=== PATIENT | male | born 2000 | race Hispanic/Latino ===

== ENCOUNTER → 2022-04-22 | Outpatient (CLI) | payer OTHER, SELFPAY ==
[2022-04-22 12:20] LABS: Absolute Lymphocyte Count 1.14 X10^3/uL (0.83-4.51); Absolute Neutrophil Count 5.3 X10^3/uL (2.0-7.7); Basophil# 0.06 X10^3/uL; Basophil% 0.8 % (0-1); Eosinophil# 0.28 X10^3/uL; Eosinophils% 3.5 % (0-5); Hematocrit 35.4 % (40-54); Hemoglobin 10.2 g/dL (13.0-16.5); Lymphocyte # 1.14 X10^3/ul (0.83-4.51); Lymphocyte % 14.4 % (19-41); Mean Corp Hgb Conc 28.8 g/dL (32-36); Mean Corpuscular Hgb 18.5 pg (27.0-32.0); Mean Corpuscular Volume 64.2 fL (80-94); Mean Platelet Vol. 9.9 fl (6.2-12.0); Monocyte% 13.9 % (0-10); NRBC Flagged by Analyzer 0 % (0-5); Neutrophil # 5.33 X10^3/uL (2.7-7.7); Neutrophil % 67.1 % (47-70); Platelet Count 392 K/mm3 (150-450); RBC Distribution Width CV 18.6 % (11.6-14.6); RBC Distribution Width SD 40.6 fl (35.1-43.9); Red Blood Count 5.51 M/mm3 (4.6-6.2); White Blood Count 7.9 K/mm3 (4.4-11.0)
[2022-04-22 12:43] LABS: ALB/GLOB Ratio 0.9 RATIO (0.9-2.4); AST(SGOT) 19 U/L (15-37); Alanine Aminotransfer ALT/SGPT 40 U/L (16-61); Albumin, Serum 3.4 g/dL (3.2-5.0); Alkaline Phosphatase 60 U/L (45-117); Anion Gap 5 (5-15); BUN 11 mg/dL (7-18); BUN/Creat Ratio 16.3 RATIO (10-20); Calcium,Total 8.9 mg/dL (8.5-10.1); Chloride 105 mmol/L (98-107); Creatinine, Serum 0.68 mg/dL (0.70-1.30); EST Glomerular Filtration Rate 154 mL/min (>60); Est Glom Filt Rate - Afr Amer 186 mL/min (>60); Ferritin 5 ng/mL (26-388); Globulin 3.8 g/dL (2.2-4.2); Glucose 84 mg/dL (74-106); Iron 12 ug/dL (65-175); Iron Binding Capacity,Total 409 ug/dL (250-450); Potassium 4.6 mmol/L (3.5-5.1); Protein, Total 7.2 g/dL (6.4-8.2); Sodium Level 139 mmol/L (136-145)
[2022-04-23 16:34] LABS: Transferrin 311 mg/dL (177-329)
== END | disposition home or self-care (01) ==
LOC: BIMLAB 09:45
PROVIDERS: PCP Internal Medicine; Referring Provider Physician Assistant; Visit Provider Physician Assistant
DX: D64.9 Anemia, unspecified (principal); K92.1 Melena; R19.7 Diarrhea, unspecified; R11.10 Vomiting, unspecified
CPT/HCPCS: 36415; 80053; 82728; 83540; 83550; 84466; 85025; 87635; U0003; U0005

== ENCOUNTER → 2022-04-24 | Outpatient (CLI) | payer OTHER, SELFPAY | END | disposition home or self-care (01) | LOC: LABSPEC 07:40 | PROVIDERS: PCP Internal Medicine; Referring Provider Physician Assistant; Visit Provider Physician Assistant | DX: D64.9 Anemia, unspecified (principal); R19.7 Diarrhea, unspecified; R11.10 Vomiting, unspecified; K92.1 Melena | CPT/HCPCS: 82274 ==

== ENCOUNTER → 2022-07-16 | Outpatient (CLI) | payer OTHER, SELFPAY ==
[2022-07-16 15:16] LABS: Erythrocyte Sedimentation Rate 46 mm/hr (0-20)
[2022-07-16 15:18] LABS: Absolute Lymphocyte Count 1.25 X10^3/uL (0.83-4.51); Absolute Neutrophil Count 5.3 X10^3/uL (2.0-7.7); Basophil# 0.05 X10^3/uL; Basophil% 0.6 % (0-1); Eosinophil# 0.42 X10^3/uL; Eosinophils% 5.3 % (0-5); Hematocrit 36.9 % (40-54); Hemoglobin 10.6 g/dL (13.0-16.5); Lymphocyte # 1.25 X10^3/ul (0.83-4.51); Lymphocyte % 15.8 % (19-41); Mean Corp Hgb Conc 28.7 g/dL (32-36); Mean Corpuscular Hgb 18.6 pg (27.0-32.0); Mean Corpuscular Volume 64.9 fL (80-94); Mean Platelet Vol. 10.3 fl (6.2-12.0); Monocyte# 0.93 X10^3/uL; Monocyte% 11.7 % (0-10); NRBC Flagged by Analyzer 0 % (0-5); Neutrophil # 5.25 X10^3/uL (2.7-7.7); Neutrophil % 66.3 % (47-70); Platelet Count 451 K/mm3 (150-450); RBC Distribution Width CV 19.2 % (11.6-14.6); Red Blood Count 5.69 M/mm3 (4.6-6.2); White Blood Count 7.9 K/mm3 (4.4-11.0)
[2022-07-16 15:36] LABS: LDH 234 U/L (87-241)
[2022-07-19 13:07] LABS: Anti-Centromere B Ab <0.2 AI (0.0-0.9); Anti-Chromatin <0.2 AI (0.0-0.9); Anti-Jo <0.2 AI (0.0-0.9); Anti-Scleroderma-70 AB <0.2 AI (0.0-0.9); RNP Ab <0.2 AI (0.0-0.9); SJOGREN'S Anti-SS-A test < 0.2 AI (0.0-0.9); SJOGREN'S Anti-SS-B test < 0.2 AI (0.0-0.9); Smith Ab <0.2 AI (0.0-0.9)
[2022-07-19 15:07] LABS: Endomysial Antibody IgA Negative (Negative); Immunoglobulin A 80 mg/dL (90-386)
[2022-07-20 14:04] LABS: t-Transglutaminase IgA <2 U/mL (0-3)
[2022-07-20 15:22] LABS: Anti-dsDNA Ab 1 IU/mL (0-9)
[2022-07-23 18:07] LABS: Albumin 3.3 g/dL (2.9-4.4); Alpha-1-Globulins 0.3 g/dL (0.0-0.4); Alpha-2-Globulins 0.8 g/dL (0.4-1.0); Cytoplasmic Ab (C-ANCA) <1:20 titer (Neg:<1:20); Gamma Globulin 1.1 g/dL (0.4-1.8); Immunoglobulin A 76 mg/dL (90-386); Immunoglobulin E 124 IU/mL (6-495); Immunoglobulin G 1150 mg/dL (603-1613); Immunoglobulin M 104 mg/dL (20-172); PROEL- TOTAL PROTEIN 6.4 g/dL (6.0-8.5)
[2022-07-24 07:15] LABS: IMMUNOFIXATION RESULT,S Comment: (.); Perinuclear Ab (P-ANCA) <1:20 titer (Neg:<1:20)
== END | disposition home or self-care (01) ==
LOC: LAB 14:33
PROVIDERS: PCP Internal Medicine; Referring Provider Internal Medicine Gastroenterology; Visit Provider Internal Medicine Gastroenterology
DX: K92.2 Gastrointestinal hemorrhage, unspecified (principal)
CPT/HCPCS: 36415; 82784; 82785; 83516; 83615; 84165; 85025; 85652; 86140; 86225; 86235; 86255; 86256; 86334

== ENCOUNTER → 2022-07-19 | Outpatient (CLI) | payer OTHER, SELFPAY ==
[2022-07-23 11:07] LABS: Calprotectin, Stool 532 ug/g (0-120)
== END | disposition home or self-care (01) ==
LOC: LABSPEC 19:43
PROVIDERS: PCP Internal Medicine; Visit Provider Internal Medicine Gastroenterology
DX: K92.2 Gastrointestinal hemorrhage, unspecified (principal)
CPT/HCPCS: 83630; 83993

== ENCOUNTER 2022-10-05 14:11 | Day surgery (SDC) | payer OTHER, SELFPAY ==
[2022-10-05] VITALS (7 sets, daily range): BP systolic 103–124; BP diastolic 44–65; PULSE 42–65; RESP 18; TEMP 36.4–36.8; O2SAT 99–100; BMI 40.6
[2022-10-05] MEDS: Lactated Ringers 1,000 ML 15 ML IV (14:57)
--- NOTE | 2022-10-05 14:59 | HP.PCM_ITS ---
History and Physical Date of Admission: 10/05/22 BENITO NICOLE, is a 22 M who presents to the office today for Initial consult. Benito established with this clinic 07.16.22 with referral from PCP for diarrhea with some blood and some fatigue. These symptoms have been for the last four years and occur several times in a week and then dissipate for several months. Denies abdominal pain, nausea and emesis. Stool testing performed with positive fecal occult. PCP recommended iron and he feels about the same as previously. Presented to [facility] ED 04.21.22 with noted microcytic anemia and discharged with Zofran and dicyclomine which were helpful. ROS Const Constitutional: No anorexia, body ache, chills, excessive sweating, fatigue, fever(s), frequent falls, headache(s), decreased energy, malaise, night sweats, snoring, weakness, weight change, sleep problems, abnormal sleep pattern, change in appetite or other Eyes Eyes: No blurry vision, change in vision, double vision, irritation, discharge, vision loss, dry eyes, bulging eyes, floaters, visual disturbances, eye pain, Light sensitivity, spots in vision, tunnel vision or other ENT ENT: No abnormal hearing, dizziness/vertigo, headache(s) or neck pain Resp Respiratory: No cough, change in phlegm color, chest congestion, excessive phlegm production, hemoptysis, pain on inspiration, shortness of breath, pain with cough, snoring, stridor, wheezing or other Cardio Cardiology: Positive for shortness of breath (diff with deep breaths); No chest pain at rest, chest pain with exertion, leg pain with exertion, excessive sweating, dyspnea on exertion, generalized swelling, irregular heart rhythm, lightheadedness, orthopnea, radiating jaw, neck or arm pain, fast heart rate, slow heart rate, palpitations, difficulty breathing or other Gastro GI: Positive for abdominal pain, Blood in stool, loose stools and vomiting Genitourinary Male: No difficulty urinating, burning urination, painful urination, urinary incontinence, urinary frequency, urinary urgency, urinary hesitancy, urinary retention, blood in urine, Frequent nighttime urination/ nocturia, post void dribbling, suprapubic fullness, side pain, sexual problems, genital lesions, genital itching, erectile dysfunction, penile discharge, difficulty with ejaculations, blood in semen, scrotal swelling, testicle lump, testicle pain or other Musc Musculoskeletal: No abnormal gait, joint pain, back pain, deformity, joint swelling, limited range of motion, loss of height, muscle cramps, muscle weakness, decreased muscle mass, myalgias, neck pain, numbness, radiating pain into limb, stiffness, tingling, Arthritis, sciatica, restless legs, leg pain at night, leg pain with exertion or other Skin Skin: No acne, hair loss in leg, change in hair, nail changes, boil, change in skin color, dry skin, redness, excessive hair growth, yellowing of the eye, lesions, itchy eyes, rash, skin pain, skin ulcer, sores, skin swelling, wounds or other Breast Breast: No change in breast shape, breast lump, breast pain, breast skin changes, breast swelling, nipple discharge or other Neuro Neurology: No abnormal gait, abnormal hearing, abnormal movements, abnormal speech, behavioral changes, confusion, unsteady gait/balance, dizziness, weakness, frequent falls, headache(s), lack of coordination, loss of vision, memory loss, numbness, tingling, visual disturbances, restless legs, fainting, tremor(s), Increased tone in limbs, paralysis, seizures or other Psych Psychiatric: No abnormal sleep pattern, No behavioral changes, No change in appetite, No confusion and No memory loss Endo Endocrine: No excessive sweating, fatigue or weight change Aller/Imm Allergy/Immunologic: No itchy eyes or wheezing Exam Const General: cooperative, comfortable and no acute distress Nutritional Appearance: overweight Orientation: alert and oriented x3 Limitations: mental status not altered [facility] Head: normal to inspection, normocephalic and atraumatic Ears: hearing grossly normal bilaterally, external ears normal, TM's normal bilaterally and EAC's normal Nose: external nose normal and nares normal Face and sinus: normal facial exam Mouth: oral mucosae normal, lip normal and moist mucous membranes Teeth and gingiva: dentition normal Throat: posterior oropharynx normal Eyes General: appearance normal, both eyes and all related structures Alignment and Position: alignment normal Periorbital: periorbital findings normal Eyelids: eyelids normal Conjunctivae: conjunctivae normal Pupils: PERRL Neck Neck: normal visual inspection, no lymphadenopathy, trachea midline and supple Neck mass: No Thyroid: thyroid normal Chest Chest palpation & inspection: normal palpation of entire chest wall Resp Effort & Inspection: normal respiratory effort, able to speak in complete sentences, normal respiratory pattern, no audible wheezes and no cough Auscultation: Bilateral: Clear to Auscultation Cardio Rate: regular rate Rhythm: regular rhythm Heart Sounds: S1 normal, S2 normal, no gallops, no murmurs and no rubs GI Auscultation: normal bowel sounds Palpation: soft, no hepatosplenomegaly and tender in the RLQ and periumbilically; not at McBurney's point, Fairchild's sign negative, obturator sign negative, psoas sign negative, with no rebound tenderness and Rovsing's sign negative General: No CVA tenderness Skin General: no rashes or lesions noted Trauma: no lacerations or abrasions Wounds: no wounds Neuro General: patient alert, patient oriented x3 and moves all extremities Cognition: normal cognition Speech: speech normal Gait: normal gait Motor: muscle tone normal throughout Extrem General: normal to inspection, full ROM, no clubbing, cyanosis or edema and no pedal edema Psych Appearance: grossly normal Mental Status: mental status grossly normal Mood: congruent mood Affect: normal affect Speech and Movement: speech and movement normal Attitude: cooperative Thought Process: normal Thought Content: normal Judgment: judgment good Quality Reporting Tobacco Screening ([facility] 138) Smoking Status: Never smoker Assessment and Plan Assessment and Plan (1) GIB (gastrointestinal bleeding): ?Status:?Acute ?Plan: Intermittent lower GI bleeding in a young male with diarrhea and iron deficient.? The differential diagnosis Crohn's disease, ulcerative colitis, telangiectasias, celiac disease with lymphocytic colitis.? We will do biochemical profile and check stool studies.? He will also endoscopy to evaluate his lower GI tract.? Today CBC as his ferritin is only 5, MCV 64 and iron level of 12.? He is on iron for now. ? ? ? Orders: Orders CRP Today K92.2 - Gastrointestinal hemorrhage, unspecified ? LDH Today K92.2 - Gastrointestinal hemorrhage, unspecified ? CBC W/Diff, Automated Today K92.2 - Gastrointestinal hemorrhage, unspecified ? Erythrocyte Sed Rate Today K92.2 - Gastrointestinal hemorrhage, unspecified ? ROSALIND Comprehensive Panel Today K92.2 - Gastrointestinal hemorrhage, unspecified ? Calprotectin, Stool Today K92.2 - Gastrointestinal hemorrhage, unspecified ? Stool Lactoferrin/WBC Today K92.2 - Gastrointestinal hemorrhage, unspecified ? ANCA Today K92.2 - Gastrointestinal hemorrhage, unspecified ? Celiac Disease Profile Today K92.2 - Gastrointestinal hemorrhage, unspecified ? Immunoglobulins G/A/M/E Today K92.2 - Gastrointestinal hemorrhage, unspecified ? ANGELINA + Protein Elect, SerumA Today K92.2 - Gastrointestinal hemorrhage, unspecified ? I have examined the patient and the H&P has been reviewed. There are no clinical changes since date of exam.
--- NOTE | 2022-10-05 15:15 | EGD_PTH ---
PATIENT: BENITO NICOLE LOC: [facility] U#:[id number] AGE/SX: 22/M ROOM: RE10/05/[address]: Dr. Porter Davis DO : 2000 BED: DIS: 10/05/2022 SPEC #: [id number] RECD: 10/05/22 17:02 STATUS: RODNEY SONIYA #: [id number] JAH: 10/05/22 15:[address]: Porter Davis DEPT: SURGICAL PATHOLOGY RECD BY: Keisha Cabezas ENTERED: 10/06/22 08:57 SP TYPE: EGD BIOPSY DEDRA DR: Dr. Juanita Messer MD Tissues: A - Esophagus, NOS B - Ileum, NOS Procedures: Special Stain Group II Surgery Specimen Level IV Alcian Blue/PAS (control) HEADER OPERATION: Colonoscopy, EGD ([facility] [place]) PRE-OP DIAGNOSIS: GI bleeding TISSUE SUBMITTED: A ? Distal esophagus biopsy, B ? Terminal ileum biopsy MICROSCOPIC DIAGNOSIS A. Distal esophagus, biopsy: Gastroesophageal junctional mucosa with chronic inflammation. No evidence of goblet cell metaplasia. See comment. B. Terminal ileum, biopsy: No pathologic change. AM:nidhi 10/07/2022 COMMENT A. Alcian blue/PAS stain with matched control supports the above diagnosis. MICROSCOPIC DESCRIPTION Slides are reviewed. GROSS DESCRIPTION A - Received in fixative is one container labeled with the patient's name and designated distal esophagus. The specimen consists of two irregular fragments of light wesley soft tissue that in aggregate measure 0.7 x 0.3 x 0.1 cm. The specimen is totally submitted in one cassette. B - Received in fixative is one container labeled with the patient's name and designated terminal ileum biopsy. The specimen consists of multiple irregular fragments of light wesley soft tissue that in aggregate measure 1 x 0.6 x 0.1 cm. The specimen is totally submitted in one cassette. / AM:nidhi 10/06/2022 TC:3 CPT: 76118 x2, 14357
--- NOTE | 2022-10-05 16:01 | OP.EGD_ITS ---
Patient Name: Jaguar Venecs Procedure Date: 10/05/2022 3:32 PM Date of : 2000 Age: 22 Procedure: Upper GI endoscopy Indications: Epigastric abdominal pain, Dyspepsia, Heartburn Providers: Porter Davis DO Referring MD: Juanita Messer Medicines: Monitored Anesthesia Care Patient Profile: This is a 22 year old male. Refer to note in patient chart for documentation of history and physical. Patient has symptoms of chronic abdominal cramping, acute epigastric abdominal pain and chronic heartburn. Complications: No immediate complications. Procedure: Pre-Anesthesia Assessment: - Prior to the procedure, a History and Physical was performed, and patient medications and allergies were reviewed. The patient is competent. The risks and benefits of the procedure and the sedation options and risks were discussed with the patient. All questions were answered and informed consent was obtained. Patient identification and proposed procedure were verified by the physician in the pre-procedure area. Mental Status Examination: alert and oriented. Airway Examination: normal oropharyngeal airway and neck mobility. Respiratory Examination: clear to auscultation. CV Examination: normal. Prophylactic Antibiotics: The patient does not require prophylactic antibiotics. Prior Anticoagulants: The patient has taken no previous anticoagulant or antiplatelet agents. ASA Grade Assessment: II - A patient with mild systemic disease. After reviewing the risks and benefits, the patient was deemed in satisfactory condition to undergo the procedure. The anesthesia plan was to use monitored anesthesia care (MAC). Immediately prior to administration of medications, the patient was re-assessed for adequacy to receive sedatives. The heart rate, respiratory rate, oxygen saturations, blood pressure, adequacy of pulmonary ventilation, and response to care were monitored throughout the procedure. The physical status of the patient was re-assessed after the procedure. After obtaining informed consent, the endoscope was passed under direct vision. Throughout the procedure, the patient's blood pressure, pulse, and oxygen saturations were monitored continuously. The Colonoscope was introduced through the mouth, and advanced to the second part of duodenum. The upper GI endoscopy was accomplished without difficulty. The patient tolerated the procedure well. Scope In: 3:39:21 PM Scope Out: 3:43:11 PM Total Procedure Duration Time 0 hours 3 minutes 50 seconds Findings: LA Grade B (one or more mucosal breaks greater than 5 mm, not extending between the tops of two mucosal folds) esophagitis with no bleeding was found 36 to 38 cm from the incisors. Biopsies were taken with a cold forceps for histology. Verification of patient identification for the specimen was done. Estimated blood loss was minimal. The entire examined stomach was normal. The first portion of the duodenum was normal. Impression: - LA Grade B reflux esophagitis. Biopsied. - Normal stomach. - Normal first portion of the duodenum. Recommendation: - Discharge patient to home. - Resume previous diet. - Continue present medications. - Await pathology results. Procedure Code(s): --- Professional --- 69161, Esophagogastroduodenoscopy, flexible, transoral; with biopsy, single or multiple CPT copyright 2017 [employer]. All rights reserved. The codes documented in this report are preliminary and upon nailer operator review may be revised to meet current compliance requirements. Porter Davis DO 10/05/2022 4:01:15 PM This report has been signed electronically. Number of Addenda: 0 Note Initiated On: 10/05/2022 3:32 PM
--- NOTE | 2022-10-05 16:01 | OP.CCLET_ITS ---
10/05/2022 Juanita Messer [facility] [address] [place] [address] Re : Upper GI endoscopy procedure for [facility] Dear Dr. Messer This procedure was performed on Wednesday, October 05, 2022. My impressions and recommendations are as follows: Impressions : - LA Grade B reflux esophagitis. Biopsied. - Normal stomach. - Normal first portion of the duodenum. Recommendations : - Discharge patient to home. - Resume previous diet. - Continue present medications. - Await pathology results. My findings are described in the full procedure note, which is enclosed. If I can be of further assistance, please feel free to contact me at . Sincerely, Porter Davis, 10/05/2022 4:01:15 PM This report has been signed electronically.
--- NOTE | 2022-10-05 16:07 | OP.COLON_ITS ---
Patient Name: Jaguar Vences Procedure Date: 10/05/2022 3:43 PM Date of : 2000 Age: 22 Procedure: Colonoscopy Indications: This is the patient's first colonoscopy, Hematochezia Providers: Porter Davis DO Referring MD: Juanita Messer Medicines: Monitored Anesthesia Care Patient Profile: This is a 22 year old male. Refer to note in patient chart for documentation of history and physical. Patient has symptoms of chronic abdominal cramping, acute epigastric abdominal pain and chronic heartburn. Last Colonoscopy: none. The patient's first colonoscopy is today. Complications: No immediate complications. Procedure: Pre-Anesthesia Assessment: - Prior to the procedure, a History and Physical was performed, and patient medications and allergies were reviewed. The patient is competent. The risks and benefits of the procedure and the sedation options and risks were discussed with the patient. All questions were answered and informed consent was obtained. Patient identification and proposed procedure were verified by the physician in the pre-procedure area. Mental Status Examination: alert and oriented. Airway Examination: normal oropharyngeal airway and neck mobility. Respiratory Examination: clear to auscultation. CV Examination: normal. Prophylactic Antibiotics: The patient does not require prophylactic antibiotics. Prior Anticoagulants: The patient has taken no previous anticoagulant or antiplatelet agents. ASA Grade Assessment: II - A patient with mild systemic disease. After reviewing the risks and benefits, the patient was deemed in satisfactory condition to undergo the procedure. The anesthesia plan was to use monitored anesthesia care (MAC). Immediately prior to administration of medications, the patient was re-assessed for adequacy to receive sedatives. The heart rate, respiratory rate, oxygen saturations, blood pressure, adequacy of pulmonary ventilation, and response to care were monitored throughout the procedure. The physical status of the patient was re-assessed after the procedure. After I obtained informed consent, the scope was passed under direct vision. Throughout the procedure, the patient's blood pressure, pulse, and oxygen saturations were monitored continuously. The Colonoscope was introduced through the anus and advanced to the terminal ileum. The colonoscopy was performed without difficulty. The patient tolerated the procedure well. The quality of the bowel preparation was good. Scope In: 3:46:45 PM Scope Withdrawal Time 0 hours 5 minutes 25 seconds Scope Out: 3:55:19 PM Total Procedure Duration Time 0 hours 8 minutes 34 seconds Findings: The perianal and digital rectal examinations were normal. The Simple Endoscopic Score for Crohn's Disease was determined based on the endoscopic appearance of the mucosa in the following segments: - Ileum: Findings include ulcers greater than 2 cm in size, 10-30% ulcerated surfaces, less than 50% of surfaces affected and a single narrowing that can be passed. Segment score: 7. - Right Colon: Findings include no ulcers present, no ulcerated surfaces, no affected surfaces and no narrowings. Segment score: 0. - Transverse Colon: Findings include no ulcers present, no ulcerated surfaces, no affected surfaces and no narrowings. Segment score: 0. - Left Colon: Findings include no ulcers present, no ulcerated surfaces, no affected surfaces and no narrowings. Segment score: 0. - Rectum: Findings include no ulcers present, no ulcerated surfaces, no affected surfaces and no narrowings. Segment score: 0. - Total SES-CD aggregate score: 7. Biopsies were taken with a cold forceps for histology. Verification of patient identification for the specimen was done. Estimated blood loss was minimal. The entire examined colon appeared normal on direct and retroflexion views. The terminal ileum contained a benign-appearing, intrinsic moderate stenosis measuring 5 cm (in length) x 2 mm (inner diameter) that was traversed after dilation. A TTS dilator was passed through the scope. Dilation with a 15 mm colonic balloon dilator was performed. The dilation site was examined and showed moderate improvement in luminal narrowing. Impression: - Simple Endoscopic Score for Crohn's Disease: 7, mucosal inflammatory changes secondary to Crohn's disease. Biopsied. - The entire examined colon is normal on direct and retroflexion views. Recommendation: - Discharge patient to home. - Resume previous diet. - Continue present medications. - Await pathology results. - Repeat colonoscopy in 1 year for surveillance. Procedure Code(s): --- Professional --- 20824, Colonoscopy, flexible; with transendoscopic balloon dilation 37994, Colonoscopy, flexible; with biopsy, single or multiple CPT copyright 2017 [employer]. All rights reserved. The codes documented in this report are preliminary and upon sintering press operator review may be revised to meet current compliance requirements. Porter Davis DO 10/05/2022 4:07:19 PM This report has been signed electronically. Number of Addenda: 0 Note Initiated On: 10/05/2022 3:43 PM
--- NOTE | 2022-10-05 16:08 | OP.CCLET_ITS ---
10/05/2022 Juanita Messer [facility] [address] [place] [address] Re : Colonoscopy procedure for Jaguar Ru Dear Dr. Messer This procedure was performed on Wednesday, October 05, 2022. My impressions and recommendations are as follows: Impressions : - Simple Endoscopic Score for Crohn's Disease: 7, mucosal inflammatory changes secondary to Crohn's disease. Biopsied. - The entire examined colon is normal on direct and retroflexion views. Recommendations : - Discharge patient to home. - Resume previous diet. - Continue present medications. - Await pathology results. - Repeat colonoscopy in 1 year for surveillance. My findings are described in the full procedure note, which is enclosed. If I can be of further assistance, please feel free to contact me at . Sincerely, Porter Davis, 10/05/2022 4:07:19 PM This report has been signed electronically.
== END 2022-10-05 16:51 | disposition home or self-care (01) ==
LOC: EN 14:15 → AC 14:15
PROVIDERS: PCP Internal Medicine; Referring Provider Internal Medicine; Visit Provider Internal Medicine Gastroenterology
PROC: 0DJD8ZZ Inspection of Lower Intestinal Tract, Via Natural or Artificial Opening Endoscopic (ICD-10-PCS; CPT 45378; principal; 2022-10-05 15:10)
DX: K21.00 Gastro-esophageal reflux disease with esophagitis, without bleeding (principal); K56.609 Unspecified intestinal obstruction, unspecified as to partial versus complete obstruction
CPT/HCPCS: 45380; 45386; 43239; 88305; 88313; J7120; J2405

== ENCOUNTER → 2022-10-20 | Outpatient (CLI) | payer OTHER, SELFPAY ==
[2022-10-20 14:40] LABS: Absolute Lymphocyte Count 1.35 X10^3/uL (0.83-4.51); Absolute Neutrophil Count 6.3 X10^3/uL (2.0-7.7); Basophil# 0.03 X10^3/uL; Basophil% 0.3 % (0-1); Eosinophil# 0.31 X10^3/uL; Eosinophils% 3.5 % (0-5); Hematocrit 41.7 % (40-54); Hemoglobin 12.3 g/dL (13.0-16.5); Lymphocyte # 1.35 X10^3/ul (0.83-4.51); Lymphocyte % 15.2 % (19-41); Mean Corp Hgb Conc 29.5 g/dL (32-36); Mean Corpuscular Volume 67.9 fL (80-94); Mean Platelet Vol. 9.6 fl (6.2-12.0); Monocyte# 0.82 X10^3/uL; Monocyte% 9.2 % (0-10); NRBC Flagged by Analyzer 0 % (0-5); Neutrophil # 6.34 X10^3/uL (2.7-7.7); Neutrophil % 71.6 % (47-70); Platelet Count 417 K/mm3 (150-450); RBC Distribution Width CV 19.8 % (11.6-14.6); RBC Distribution Width SD 45.9 fl (35.1-43.9); Red Blood Count 6.14 M/mm3 (4.6-6.2); White Blood Count 8.9 K/mm3 (4.4-11.0)
[2022-10-20 16:22] LABS: Vitamin B12 301 pg/mL (211-911); Vitamin D,25 Hydroxy 11.9 ng/mL
[2022-10-20 16:27] LABS: ALB/GLOB Ratio 0.8 RATIO (0.9-2.4); AST(SGOT) 19 U/L (15-37); Alanine Aminotransfer ALT/SGPT 38 U/L (16-61); Albumin, Serum 3.3 g/dL (3.2-5.0); Alkaline Phosphatase 66 U/L (45-117); Anion Gap 8 (5-15); BUN 11 mg/dL (7-18); BUN/Creat Ratio 17.6 RATIO (10-20); Calcium,Total 8.4 mg/dL (8.5-10.1); Chloride 109 mmol/L (98-107); Creatinine, Serum 0.63 mg/dL (0.70-1.30); EST Glomerular Filtration Rate 167 mL/min (>60); Est Glom Filt Rate - Afr Amer 202 mL/min (>60); Ferritin 4 ng/mL (26-388); Globulin 3.9 g/dL (2.2-4.2); Glucose 97 mg/dL (74-106); Iron 15 ug/dL (65-175); Iron Binding Capacity,Total 394 ug/dL (250-450); PERCENT IRON SATURATION 3.8 % (15.0-55.0); Potassium 3.7 mmol/L (3.5-5.1); Protein, Total 7.2 g/dL (6.4-8.2); Sodium Level 142 mmol/L (136-145); T4 Free Direct 1.08 ng/dL (0.76-1.46); Thyroid Stim Hormone (TSH) 0.63 uIU/mL (0.358-3.74)
[2022-10-22 21:07] LABS: HEPATITIS B SURFACE AG Negative (Negative); Hep C Antibodies 0.2 s/co ratio (0.0-0.9); Hepatitis A IgM Antibody Negative (Negative); Hepatitis B Core AB IgM Negative (Negative); QNTFERON TB Mitogen Value > 10.00 IU/mL (.); QNTFERON TB Nil Value 0.04 IU/mL (.); QNTFERON TB1+ Ag Value 0.03 IU/mL (.); QNTFERON TB2+ Ag Value 0.03 IU/mL (.)
[2022-10-23 15:03] LABS: QNTIFERON TB Positive Criteria Negative (Negative)
[2022-10-23 21:01] LABS: Vitamin D 1,25-Dihydroxy 48.5 pg/mL (24.8-81.5)
== END | disposition home or self-care (01) ==
LOC: LAB 13:29
PROVIDERS: PCP Internal Medicine; Referring Provider Internal Medicine Gastroenterology; Visit Provider Internal Medicine Gastroenterology
DX: K50.90 Crohn's disease, unspecified, without complications (principal)
CPT/HCPCS: 36415; 80053; 80074; 82306; 82607; 82652; 82728; 82746; 83540; 83550; 84439; 84443; 84481; 85025; 86480

== ENCOUNTER → 2023-01-04 | Outpatient (CLI) | payer OTHER, SELFPAY ==
[2023-01-04 13:29] VITALS: BP 134/59; PULSE 94; RESP 16; TEMP 36.7; O2SAT 99; BMI 41.5
[2023-01-04] MEDS: 0.9% NaCl Peripheral Flush Adult/Peds IV (13:33)
[2023-01-04] MEDS: 0.9% NaCl IVPB Med Flush (250 mL) 15 ML IV (13:35)
[2023-01-04 15:14] VITALS: BP 128/86; PULSE 77; RESP 16; TEMP 36.3; O2SAT 100
== END | disposition home or self-care (01) ==
LOC: MEDOUTP 13:24
PROVIDERS: PCP Internal Medicine; Referring Provider Internal Medicine Gastroenterology; Visit Provider Internal Medicine Gastroenterology
DX: K50.90 Crohn's disease, unspecified, without complications (principal)
CPT/HCPCS: 96365; 96361; J7050; A4216; J3358

== ENCOUNTER → 2023-04-22 | Outpatient (CLI) | payer OTHER, SELFPAY ==
[2023-04-22 10:41] LABS: Absolute Lymphocyte Count 1.11 X10^3/uL (0.83-4.51); Absolute Neutrophil Count 3.6 X10^3/uL (2.0-7.7); Basophil# 0.05 X10^3/uL; Basophil% 0.9 % (0-1); Eosinophil# 0.26 X10^3/uL; Eosinophils% 4.6 % (0-5); Hematocrit 25.8 % (40-54); Hemoglobin 6.6 g/dL (13.0-16.5); Lymphocyte # 1.11 X10^3/ul (0.83-4.51); Lymphocyte % 19.6 % (19-41); Mean Corp Hgb Conc 25.6 g/dL (32-36); Mean Corpuscular Hgb 15.5 pg (27.0-32.0); Mean Corpuscular Volume 60.7 fL (80-94); Mean Platelet Vol. 9.8 fl (6.2-12.0); Monocyte# 0.68 X10^3/uL; NRBC Flagged by Analyzer 0 % (0-5); Neutrophil # 3.55 X10^3/uL (2.7-7.7); Neutrophil % 62.7 % (47-70); Platelet Count 447 K/mm3 (150-450); RBC Distribution Width CV 18.6 % (11.6-14.6); RBC Distribution Width SD 39.4 fl (35.1-43.9); Red Blood Count 4.25 M/mm3 (4.6-6.2); White Blood Count 5.7 K/mm3 (4.4-11.0)
[2023-04-22 11:16] LABS: ALB/GLOB Ratio 1.1 RATIO (0.9-2.4); AST(SGOT) 13 U/L (15-37); Alanine Aminotransfer ALT/SGPT 33 U/L (16-61); Albumin, Serum 3.6 g/dL (3.2-5.0); Alkaline Phosphatase 46 U/L (45-117); Anion Gap 7 (5-15); BUN 9 mg/dL (7-18); BUN/Creat Ratio 13.5 RATIO (10-20); Calcium,Total 8.6 mg/dL (8.5-10.1); Chloride 107 mmol/L (98-107); Creatinine, Serum 0.67 mg/dL (0.70-1.30); EST Glomerular Filtration Rate 154 mL/min (>60); Est Glom Filt Rate - Afr Amer 186 mL/min (>60); Globulin 3.3 g/dL (2.2-4.2); Glucose 100 mg/dL (74-106); Iron 8 ug/dL (65-175); Iron Binding Capacity,Total 458 ug/dL (250-450); PERCENT IRON SATURATION 1.7 % (15.0-55.0); Potassium 4.1 mmol/L (3.5-5.1); Protein, Total 6.9 g/dL (6.4-8.2); Sodium Level 139 mmol/L (136-145)
[2023-04-22 11:47] LABS: Vitamin D,25 Hydroxy 21.4 ng/mL
== END | disposition home or self-care (01) ==
LOC: LAB 10:00
PROVIDERS: PCP Internal Medicine; Referring Provider Internal Medicine; Visit Provider Internal Medicine
DX: E55.9 Vitamin D deficiency, unspecified (principal); K50.90 Crohn's disease, unspecified, without complications; D64.9 Anemia, unspecified; K92.2 Gastrointestinal hemorrhage, unspecified
CPT/HCPCS: 36415; 80053; 82306; 83540; 83550; 85025

== ENCOUNTER 2023-05-06 08:36 | Outpatient (CLI) | payer OTHER, SELFPAY ==
[2023-05-06 09:21] VITALS: BP 132/35; PULSE 72; RESP 16; TEMP 36.2; O2SAT 100; BMI 44.1
[2023-05-06] MEDS: 0.9% NaCl Peripheral Flush Adult/Peds IV (09:25)
[2023-05-06] MEDS: 0.9% NaCl IVPB Med Flush (250 mL) 15 ML IV (09:35)
[2023-05-06 14:37] VITALS: BP 118/56; PULSE 76; RESP 16; TEMP 36.5; O2SAT 100
== END 2023-05-06 08:37 | disposition home or self-care (01) ==
LOC: MEDOUTP 08:37
PROVIDERS: PCP Internal Medicine; Referring Provider Internal Medicine; Visit Provider Internal Medicine
DX: D50.9 Iron deficiency anemia, unspecified (principal)
CPT/HCPCS: 96365; 96366 ×3; J7050; A4216; J2916

== ENCOUNTER 2023-06-17 09:49 | Outpatient (CLI) | payer OTHER, SELFPAY ==
[2023-06-17 10:04] VITALS: BP 141/53; PULSE 70; RESP 16; TEMP 36.1; O2SAT 100; BMI 44.3
[2023-06-17] MEDS: 0.9% NaCl IVPB Med Flush (250 mL) 15 ML IV (10:22)
[2023-06-17] MEDS: 0.9% NaCl Peripheral Flush Adult/Peds IV (10:23)
[2023-06-17 15:00] VITALS: BP 132/48; PULSE 82; RESP 16
== END 2023-06-17 09:50 | disposition home or self-care (01) ==
LOC: MEDOUTP 09:50
PROVIDERS: PCP Internal Medicine; Referring Provider Internal Medicine; Visit Provider Internal Medicine
DX: D50.9 Iron deficiency anemia, unspecified (principal)
CPT/HCPCS: 96365; 96366; J7050; A4216; J2916

== ENCOUNTER → 2023-06-17 | Outpatient (CLI) | payer OTHER, SELFPAY ==
[2023-06-17 16:50] LABS: Absolute Lymphocyte Count 1.27 X10^3/uL (0.83-4.51); Absolute Neutrophil Count 4.6 X10^3/uL (2.0-7.7); Basophil# 0.04 X10^3/uL; Basophil% 0.6 % (0-1); Differential Indicated SCAN CRITERIA MET; Eosinophil# 0.26 X10^3/uL; Eosinophils% 3.7 % (0-5); Hematocrit 24.6 % (40-54); Hemoglobin 6.4 g/dL (13.0-16.5); Lymphocyte # 1.27 X10^3/ul (0.83-4.51); Lymphocyte % 18.2 % (19-41); Mean Corpuscular Volume 57.7 fL (80-94); Mean Platelet Vol. 9.7 fl (6.2-12.0); Monocyte# 0.76 X10^3/uL; Monocyte% 10.9 % (0-10); NRBC Flagged by Analyzer 0 % (0-5); Neutrophil % 66.2 % (47-70); POSITIVE MORPHOLOGY YES; Platelet Count 527 K/mm3 (150-450); RBC Distribution Width CV 21.5 % (11.6-14.6); RBC Distribution Width SD 41.5 fl (35.1-43.9); Red Blood Count 4.26 M/mm3 (4.6-6.2)
[2023-06-17 17:16] LABS: Ferritin 2 ng/mL (26-388)
[2023-06-17 18:07] LABS: Anisocytosis 3+; Differential Comment SCANNED; Hypochromasia 2+; Macrocytosis 1+; Microcytosis 2+
== END | disposition home or self-care (01) ==
LOC: LAB 15:59
PROVIDERS: PCP Internal Medicine; Referring Provider Internal Medicine Gastroenterology; Visit Provider Internal Medicine Gastroenterology
DX: D50.9 Iron deficiency anemia, unspecified (principal)
CPT/HCPCS: 36415; 82728; 85025

== ENCOUNTER 2023-06-18 08:04 | Outpatient (CLI) | payer OTHER, SELFPAY ==
[2023-06-18] VITALS (9 sets, daily range): BP systolic 117–134; BP diastolic 43–68; PULSE 59–74; RESP 18; TEMP 36.2–36.9; O2SAT 99–100; BMI 43.5
[2023-06-18] MEDS: Acetaminophen 325 MG Tablet 650 MG PO (10:53)
== END 2023-06-18 17:30 | disposition home or self-care (01) ==
LOC: MEDOUTP 08:07 → MS3 08:08
PROVIDERS: PCP Internal Medicine; Referring Provider Internal Medicine Gastroenterology; Visit Provider Internal Medicine Gastroenterology
DX: D50.9 Iron deficiency anemia, unspecified (principal)
CPT/HCPCS: 36430; 86850; 86900; 86901; 86920; 86922; J7040; P9016

== ENCOUNTER 2023-06-23 07:42 | Outpatient (CLI) | payer OTHER, SELFPAY ==
[2023-06-23 07:50] VITALS: BP 148/44; PULSE 60; RESP 16; TEMP 35.9
[2023-06-23] MEDS: 0.9% NaCl Peripheral Flush Adult/Peds IV (07:54)
[2023-06-23] MEDS: 0.9% NaCl IVPB Med Flush (250 mL) 15 ML IV (08:03)
[2023-06-23 12:41] VITALS: BP 124/57; PULSE 76; RESP 16
== END 2023-06-23 07:43 | disposition home or self-care (01) ==
PROVIDERS: PCP Internal Medicine; Referring Provider Internal Medicine; Visit Provider Internal Medicine
DX: D50.9 Iron deficiency anemia, unspecified (principal)
CPT/HCPCS: 96365; 96366 ×3; J7050; A4216; J2916

== ENCOUNTER 2023-07-01 09:43 | Outpatient (CLI) | payer OTHER, SELFPAY ==
[2023-07-01 09:57] VITALS: BP 143/59; PULSE 54; RESP 16; TEMP 35.9; O2SAT 100; BMI 44.7
[2023-07-01] MEDS: 0.9% NaCl IVPB Med Flush (250 mL) 15 ML IV (10:56)
[2023-07-01] MEDS: 0.9% NaCl Peripheral Flush Adult/Peds IV (10:57)
[2023-07-01 15:17] VITALS: BP 148/69; PULSE 85; RESP 16; TEMP 36.4; O2SAT 99
== END 2023-07-01 09:44 | disposition home or self-care (01) ==
LOC: MEDOUTP 09:44
PROVIDERS: PCP Internal Medicine; Referring Provider Internal Medicine; Visit Provider Internal Medicine
DX: D50.9 Iron deficiency anemia, unspecified (principal)
CPT/HCPCS: 96365; 96366; J7050; A4216; J2916

== ENCOUNTER → 2023-08-05 | Outpatient (CLI) | payer OTHER, SELFPAY ==
[2023-08-05 15:50] LABS: Absolute Lymphocyte Count 1.46 X10^3/uL (0.83-4.51); Absolute Neutrophil Count 5.9 X10^3/uL (2.0-7.7); Basophil# 0.05 X10^3/uL; Basophil% 0.6 % (0-1); Eosinophil# 0.37 X10^3/uL; Eosinophils% 4.2 % (0-5); Hematocrit 41.2 % (40-54); Lymphocyte # 1.46 X10^3/ul (0.83-4.51); Lymphocyte % 16.7 % (19-41); Mean Corp Hgb Conc 29.1 g/dL (32-36); Mean Corpuscular Hgb 21.7 pg (27.0-32.0); Mean Corpuscular Volume 74.4 fL (80-94); Monocyte# 0.87 X10^3/uL; NRBC Flagged by Analyzer 0 % (0-5); Neutrophil # 5.93 X10^3/uL (2.7-7.7); POSITIVE MORPHOLOGY YES; Platelet Count 333 K/mm3 (150-450); RBC Distribution Width CV 26.7 % (11.6-14.6); RBC Distribution Width SD 67.5 fl (35.1-43.9); Red Blood Count 5.54 M/mm3 (4.6-6.2); White Blood Count 8.7 K/mm3 (4.4-11.0)
[2023-08-05 16:13] LABS: Iron 25 ug/dL (65-175); Iron Binding Capacity,Total 379 ug/dL (250-450); PERCENT IRON SATURATION 6.6 % (15.0-55.0)
[2023-08-05 16:16] LABS: Differential Indicated SCAN CRITERIA MET
== END | disposition home or self-care (01) ==
LOC: LAB 14:56
PROVIDERS: PCP Internal Medicine; Referring Provider Internal Medicine; Visit Provider Internal Medicine
DX: D50.9 Iron deficiency anemia, unspecified (principal)
CPT/HCPCS: 36415; 83540; 83550; 85025

== ENCOUNTER 2023-09-09 11:14 | Outpatient (CLI) | payer OTHER, SELFPAY ==
[2023-09-09 11:19] VITALS: BP 146/57; PULSE 57; RESP 16; TEMP 36.3; O2SAT 100; BMI 44.6
[2023-09-09] MEDS: Sodium Ferric Gluconat/Sucrose 250 MG in 0.9% Normal Saline (250mL Bag) 250 ML 135 MG IV (11:42)
[2023-09-09] MEDS: 0.9% NaCl IVPB Med Flush (250 mL) 15 ML IV (11:42)
[2023-09-09] MEDS: 0.9% NaCl Peripheral Flush Adult/Peds IV (11:42)
[2023-09-09 14:16] VITALS: BP 133/67; PULSE 74; RESP 16; TEMP 36.1; O2SAT 100
== END 2023-09-09 11:15 | disposition home or self-care (01) ==
PROVIDERS: PCP Internal Medicine; Referring Provider Internal Medicine; Visit Provider Internal Medicine
DX: D50.9 Iron deficiency anemia, unspecified (principal)
CPT/HCPCS: 96365; 96366; J7050; A4216; J2916

== ENCOUNTER 2023-09-16 11:52 | Outpatient (CLI) | payer OTHER, SELFPAY ==
[2023-09-16 12:01] VITALS: BP 140/70; PULSE 65; RESP 16; TEMP 36.6; O2SAT 99
[2023-09-16] MEDS: 0.9% NaCl Peripheral Flush Adult/Peds IV (12:06)
[2023-09-16] MEDS: 0.9% NaCl IVPB Med Flush (250 mL) 15 ML IV (12:08)
[2023-09-16] MEDS: Sodium Ferric Gluconat 250 MG in 0.9% Normal Saline 250 ML 135 MG IV (12:25)
[2023-09-16 14:55] VITALS: BP 143/64; PULSE 92; RESP 16; TEMP 36.3; O2SAT 96
== END 2023-09-16 11:53 | disposition home or self-care (01) ==
LOC: MEDOUTP 11:52
PROVIDERS: PCP Internal Medicine; Referring Provider Internal Medicine; Visit Provider Internal Medicine
DX: D50.9 Iron deficiency anemia, unspecified (principal)
CPT/HCPCS: 96365; 96366; J7050; A4216; J2916

== ENCOUNTER 2023-09-23 08:57 | Outpatient (CLI) | payer OTHER, SELFPAY ==
[2023-09-23 09:07] VITALS: BP 145/56; PULSE 86; RESP 16; TEMP 36.3; O2SAT 98
[2023-09-23] MEDS: 0.9% NaCl IVPB Med Flush (250 mL) 15 ML IV (09:16)
[2023-09-23] MEDS: 0.9% NaCl Peripheral Flush Adult/Peds IV (09:16)
[2023-09-23] MEDS: Sodium Ferric Gluconat/Sucrose 250 MG in 0.9% Normal Saline (250mL Bag) 250 ML 135 MG IV (09:18)
[2023-09-23 11:42] VITALS: BP 139/53; PULSE 81; RESP 16; TEMP 36.2; O2SAT 99
[2023-09-23 12:14] LABS: Absolute Lymphocyte Count 1.47 X10^3/uL (0.83-4.51); Absolute Neutrophil Count 6.2 X10^3/uL (2.0-7.7); Basophil# 0.05 X10^3/uL; Basophil% 0.6 % (0-1); Eosinophil# 0.27 X10^3/uL; Eosinophils% 3.1 % (0-5); Erythrocyte Sedimentation Rate 22 mm/hr (0-20); Hematocrit 44.9 % (40-54); Hemoglobin 13.3 g/dL (13.0-16.5); Immature Platelet Fraction 6.9 % (1.0-7.9); Lymphocyte # 1.47 X10^3/ul (0.83-4.51); Lymphocyte % 16.7 % (19-41); Mean Corp Hgb Conc 29.6 g/dL (32-36); Mean Corpuscular Hgb 23.4 pg (27.0-32.0); Mean Platelet Vol. 9.9 fl (6.2-12.0); Monocyte# 0.81 X10^3/uL; Monocyte% 9.2 % (0-10); NRBC Flagged by Analyzer 0 % (0-5); Neutrophil # 6.15 X10^3/uL (2.7-7.7); Neutrophil % 70.1 % (47-70); Platelet Count 309 K/mm3 (150-450); RBC Distribution Width CV 18.4 % (11.6-14.6); RBC Distribution Width SD 49.6 fl (35.1-43.9); RET-HE 25.2 pg (30-35); Red Blood Count 5.68 M/mm3 (4.6-6.2); Reticulocyte Count 1.76 % (0.5-1.5); White Blood Count 8.8 K/mm3 (4.4-11.0)
[2023-09-23 12:41] LABS: CRP 5.45 mg/L (0.0-3.0); Ferritin 66 ng/mL (26-388); Iron 207 ug/dL (65-175); Iron Binding Capacity,Total 394 ug/dL (250-450); LDH 216 U/L (87-241)
[2023-09-27 21:07] LABS: Alpha-1-Globulins 0.2 g/dL (0.0-0.4); Alpha-2-Globulins 0.8 g/dL (0.4-1.0); Endomysial Antibody IgA Negative (Negative); Gamma Globulin 1.1 g/dL (0.4-1.8); Haptoglobin 189 mg/dL (17-317); Immunoglobulin A 80 mg/dL (90-386); Immunoglobulin G 1096 mg/dL (603-1613); Immunoglobulin M 116 mg/dL (20-172); PROEL- TOTAL PROTEIN 6.9 g/dL (6.0-8.5); QNTFERON TB Mitogen Value > 10.00 IU/mL (.); QNTFERON TB Nil Value 0 IU/mL (.); QNTFERON TB1+ Ag Value 0 IU/mL (.); QNTFERON TB2+ Ag Value 0.03 IU/mL (.); QNTIFERON TB Positive Criteria Negative (Negative); t-Transglutaminase IgA <2 U/mL (0-3)
== END 2023-09-23 08:58 | disposition home or self-care (01) ==
PROVIDERS: Internal Medicine Gastroenterology; PCP Internal Medicine; Referring Provider Internal Medicine; Visit Provider Internal Medicine
DX: D50.9 Iron deficiency anemia, unspecified (principal); K50.90 Crohn's disease, unspecified, without complications
CPT/HCPCS: 96365; 96366; 36415; 82728; 82784; 83010; 83516; 83540; 83550; 83615; 84165; 85025; 85045; 85652; 86140; 86255; 86334; 86480; J7050; A4216; J2916

== ENCOUNTER 2023-10-07 07:51 | Outpatient (CLI) | payer OTHER, SELFPAY ==
[2023-10-07 08:07] VITALS: BP 118/58; PULSE 68; RESP 16; TEMP 36; O2SAT 99; BMI 44.6
[2023-10-07] MEDS: 0.9% NaCl Peripheral Flush Adult/Peds IV (08:11)
[2023-10-07] MEDS: 0.9% NaCl IVPB Med Flush (250 mL) 15 ML IV (08:11)
[2023-10-07] MEDS: Sodium Ferric Gluconat/Sucrose 250 MG in 0.9% Normal Saline (250mL Bag) 250 ML 135 MG IV (08:42)
[2023-10-07 11:15] VITALS: BP 117/63; PULSE 58; RESP 16; TEMP 36.2; O2SAT 98
== END 2023-10-07 07:52 | disposition home or self-care (01) ==
LOC: MEDOUTP 07:51
PROVIDERS: PCP Internal Medicine; Referring Provider Internal Medicine; Visit Provider Internal Medicine
DX: D50.9 Iron deficiency anemia, unspecified (principal)
CPT/HCPCS: 96365; 96366; J7050; A4216; J2916

== ENCOUNTER → 2023-12-05 | Outpatient (CLI) | payer OTHER, SELFPAY ==
--- OUTSIDE RECORDS SUMMARY | 2023-12-05 15:42 | XMS RPT_ITS | CCD ---
Author Name Unknown Address [address] [place] [address] Organization [facility] Care Team Providers Care Care Management Specialist Name Role Phone ABUNDIO GRIGGS, LAURIE Primary Care Physician Medications Current Medications Medication Drug Class(es) Dates Sig (Normalized) Sig (Original) dicyclomine hydrochloride 20 mg oral tablet (1 source) Anticholinergic Start: 04-21-2022 take 1 tablet by mouth four times daily Bentyl use dicyclomine Dose : 20 mg =, Oral, QID, # 15 tab(s), 0 Refill(s) Start Date: 04/21/22 Status: Ordered ondansetron 4 mg disintegrating oral tablet (1 source) Serotonin-3 Receptor Antagonist Start: 04-21-2022 End: 04-24-2022 ondansetron 4 mg oral tablet, disintegrating Dose : 4 mg = 1 tab(s), Oral, q8h, PRN as needed for nausea/vomiting, X 3 day(s), # 8 tab(s), 0 Refill(s), 04/24/22 11:29:00 EDT Start Date: 04/21/22 Stop Date: 04/24/22 Status: Ordered Results Test Name Value Interpretation Reference Range Facil ity Vital Signs Date Time Vital Sign Value Performing Clinician Mark molina 04-21-2022 11:35-0400 Diastolic blood pressure 65 mm[Hg] SOHAIL HALL DO [facility] 04-21-2022 11:35-0400 Heart rate 60 /min SOHAIL HALL DO [facility] 04-21-2022 11:35-0400 Respiratory rate 16 /min SOHAIL DURESKA DO [facility] 04-21-2022 11:35-0400 Systolic blood pressure 128 mm[Hg] SOHAIL DURESKA DO [facility] 04-21-2022 09:58-0400 Body height 182 cm SOHAIL DURESKA DO [facility] 04-21-2022 09:58-0400 Body temperature 98.6 [degF] SOHAIL DURESKA DO [facility] 04-21-2022 09:58-0400 Body weight 128 kg SOHAIL DURESKA DO [facility] 04-21-2022 09:58-0400 Diastolic blood pressure 77 mm[Hg] SOHAIL DURESKA DO [facility] 04-21-2022 09:58-0400 Heart rate 98 /min SOHAIL DURESKA DO [facility] 04-21-2022 09:58-0400 Respiratory rate 16 /min SOHAIL DURESKA DO [facility] 04-21-2022 09:58-0400 Systolic blood pressure 144 mm[Hg] SOHAIL DURESKA DO [facility] Encounters Encounter Date Encounter Type Care Provider Facility Start: 04-21-2022 End: 04-21-2022 Emergency department patient visit SOHAIL BRADYRADHARUPESH DO [facility] Procedures Date Procedure Procedure Detail Performing Clinician Appendectomy SOHAIL RAFAEL Campbell O Tonsillectomy SOHAIL CAITLYNSARAH DO Immunizations Immunization Date Immunization Notes Care Provider Fa cility 11-15-2020 tetanus toxoid, redu neeraj diphtheria toxoid, and acellular pertussis vaccine, adsorbed SOHAIL HALL DO [facility] Social History Date Type Detail Facility Start: 04-21-2022 Tobacco smoking status Never s moked tobacco (finding) [facility] Sex Assigned At Sex [facility] Functional Status Date Assessment Result Facility 04-21-2022 Functional Status ID band on, Call device within reach, Bed in low position, Wheels locked, personal items within reach [facility] Mental Status Date Assessment Result Facility 04-21-2022 Mental Status Oriented x 4 [facility] Evaluation + Plan note 04-21-2022 Note Date & Type Note Facility 04-21-2022 Evaluation + Plan note Diagnostic Tests Pending.[facility] Path Review 04/21/22 [facility] Hospital Discharge instructions 04-21-2022 Note Date & Type Note Facility 04-21-2022 Hospital Discharg e instructions Patient Education 04/21/2022 11:22:15 Abdominal Pain Abdominal Pain Abdominal pain is pain in the stomach or belly area. Everyone has this pain from time to time. In many cases it goes away on its own. But abdominal pain can sometimes be due to a serious problem, such as appendicitis. So it s important to know when to get help. Causes of abdominal pain There are many possible causes of abdominal pain. Common causes in adults include: Constipation, diarrhea, or gas Stomach acid flowing back up into the esophagus (acid reflux or heartburn) Severe acid reflux, called GERD (gastroesophageal reflux disease) A sore in the lining of the stomach or small intestine (peptic ulcer) Inflammation of the gallbladder, liver, or pancreas Gallstones or kidney stones Appendicitis Intestinal blockage An internal organ pushing through a muscle or other tissue (hernia) Urinary tract infections In women, menstrual cramps, fibroids, ovarian cysts, pelvic inflammatory disease, or endometriosis Inflammation or infection of the intestines, including Crohn's disease and ulcerative colitis Irritable bowel syndrome Diagnosing the cause of abdominal pain Your healthcare provider will give you a physical exam help find the cause of your pain. If needed, you will have tests. Belly pain has many possible causes. So it can be hard to find the reason for your pain. Giving details about your pain can help. Tell your provider where and when you feel the pain, and what makes it better or worse. Also let your provider know if you have other symptoms such as: Fever Tiredness Upset stomach (nausea) Vomiting Changes in bathroom habits Blood in the stool or black, tarry stool Weight loss that you can't explain (involuntary weight loss?) Also report any family history of stomach or intestinal problems, or cancers. Tell your provider about all your alcohol use and drug use. Tell your provider about all medicines you use, including herbs, vitamins, and supplements. Treating abdominal pain Some causes of pain need emergency medical treatment right away. These include appendicitis or a bowel blockage. Other problems can be treated with rest, fluids, or medicines. Your healthcare provider can give you specific instructions for treatment or self-care based on what is causing your pain. If you have vomiting or diarrhea, sip water or other clear fluids. When you are ready to eat solid foods again, start with small amounts of [id number], low-fat foods. These include apple sauce, toast, or crackers. When to get medical care Call 911 or go to the hospital right away if you: Can t pass stool and are vomiting Are vomiting blood or have bloody diarrhea or black, tarry diarrhea Have chest, neck, or shoulder pain Feel like you might pass out Have pain in your shoulder blades with nausea Have sudden, severe belly pain Have new, severe pain unlike any you have felt before Have a belly that is rigid, hard, and hurts to touch Call your healthcare provider if you have: Pain for more than 5 days Bloating for more than 2 days Diarrhea for more than 5 days A fever of 100.4 F (38 C) or higher, or as directed by your healthcare provider Pain that gets worse Weight loss for no reason Continued lack of appetite Blood in your stool How to prevent abdominal pain Here are some tips to help prevent abdominal pain: Eat smaller amounts of food at each meal. Don't eat greasy, fried, or other high-fat foods. Don't eat foods that give you gas. Exercise regularly. Drink plenty of fluids. To help prevent GERD symptoms: Quit smoking. Reduce alcohol and foods that increase stomach acid. Don't use aspirin or njib-ydh-lmhuvgc pain and fever medicines, if possible. This includes nonsteroidal anti-inflammatory drugs (NSAIDs). Lose excess weight. Finish eating at least 2 hours before you go to bed or lie down. Raise the head of your bed. [id number] [employer]. [address] [place] [address]. All rights reserved. This information is not intended as a substitute for professional medical care. Always follow your healthcare professional's instructions. 04/21/2022 11:22:08 Vomiting (Adult) Vomiting (Adult) Vomiting is a common symptom that may be due to different causes. These include gastroenteritis ( stomach flu ), food poisoning and gastritis. There are other more serious causes of vomiting which may be hard to diagnose early in the illness. Therefore, it is important to watch for the warning signs listed below. The main danger from repeated vomiting is dehydration. This is due to excess loss of water and minerals from the body. When this occurs, your body fluids must be replaced. Home care If symptoms are severe, rest at home for the next 24 hours. Because your symptoms may be from an infection, wash your hands often and well. If soap and water are not available, use alcohol-based armorer technician to keep from spreading the infection to others. Wash your hands for at least 20 seconds. Humming the happy birthday song twice while you wash is an easy way to make sure you've washed for 20 seconds. Wash your hands after using the toilet, before and after preparing food, before eating food, after changing a diaper, cleaning a wound, caring for a sick person, and blowing your nose, coughing, or sneezing. You should also wash your hands after caring for someone who is sick, touching pet food, or treats, and touching an animal, or animal waste. You may use acetaminophen or NSAID medicines like ibuprofen or naproxen to control fever, unless another medicine was prescribed. If you have chronic liver or kidney disease or ever had a stomach ulcer or gastrointestinal bleeding, talk with your doctor before using these medicines. Aspirin should never be used in anyone under 18 years of age who is ill with a fever. It may cause severe liver damage. Don't use NSAID medicines if you are already taking one for another condition (like arthritis) or are on aspirin (such as for heart disease, or after a stroke) Don't use tobacco and or drink alcohol, which may worsen your symptoms. If medicines for vomiting were prescribed, take as directed. Once vomiting stops, then follow these guidelines: During the first 12 to 24 hours follow the diet below: Fruit juices. Apple, grape juice, clear fruit drinks, and electrolyte replacement drinks. Beverages. Soft drinks without caffeine; mineral water (plain or flavored), decaffeinated tea and coffee. Soups. Clear broth and bouillon Desserts. Plain gelatin, ice pops, and fruit juice bars. As you feel better, you may add 6 to 8 ounces of yogurt per day. During the next 24 hours you may add the following to the above: Hot cereal, plain toast, bread, rolls, crackers Plain noodles, rice, mashed potatoes, chicken noodle or rice soup Unsweetened canned fruit such as applesauce, bananas (avoid pineapple and citrus) Limit caffeine and chocolate. No spices or seasonings except salt. During the next 24 hours: Gradually resume a normal diet, as you feel better and your symptoms lessen. Follow-up care Follow up with your healthcare provider, or as advised. When to seek medical advice Call your healthcare provider right away if any of these occur: Constant right-sided lower belly pain or increasing general belly pain Continued vomiting (unable to keep liquids down) for 24 hours Vomiting blood or coffee grounds Swollen belly Frequent diarrhea (more than 5 times a day); blood (red or black color) or mucus in diarrhea Reduced urine output or extreme thirst Weakness, dizziness or fainting Unusually drowsy or confused Fever of 100.4 F (38 C) oral or higher, or as directed Yellow color of the eyes or skin [id number] [employer]. [address] [place] [address]. All rights reserved. This information is not intended as a substitute for professional medical care. Always follow your healthcare professional's instructions. Follow Up Care 04/21/2022 09:42:55 With:LAURIE DEL CASTILLO MD Address: [address] [place] [phone] When:2-4 days [facility] Hospital course Narrative Note Date & Type Note Facility Hospital course Narrative No data available for this section [facility] Progress note Note Date & Type Note Facility Progress note No data available for this section [facility] Summary Purpose Family History No Family History Records Found Advance Directives No Advanced Directives Records Found Additional Source Comments Care Team (unrecognized sect ion and content) Personnel Name: LAURIE DEL CASTILLO MD Address: [address] [place] [address], [phone] (unrecognized sect ion and content) No Status Records Found INFORMATION SOURCE (unrecogn ized section and content) FOR RECORDS PERTAINING TO PATIENTS WHO ARE OR HAVE BEEN ENROLLED IN A CHEMICAL DEPENDENCY/SUBSTANCEABUSE PROGRAM, SOME INFORMATION MAY BE OMITTED. This clinical summary was aggregated from multiple sources. Caution should be exercised in using it in the provision of clinical care. This summary normalizes information from multiple sources, and as a consequence, information in this document may materially change the coding, format and clinical context of patient data. In addition, data may be omitted in some cases. CLINICAL DECISIONS SHOULD BE BASED ON THE PRIMARY CLINICAL RECORDS. [employer] provides no warranty or guarantee of the accuracy or completeness of information in this document.
[2023-12-05 16:09] LABS: Absolute Lymphocyte Count 1.72 X10^3/uL (0.83-4.51); Absolute Neutrophil Count 4.9 X10^3/uL (2.0-7.7); Basophil# 0.07 X10^3/uL; Basophil% 0.9 % (0-1); Eosinophil# 0.29 X10^3/uL; Eosinophils% 3.6 % (0-5); Hematocrit 36.7 % (40-54); Hemoglobin 10.5 g/dL (13.0-16.5); Lymphocyte # 1.72 X10^3/ul (0.83-4.51); Lymphocyte % 21.6 % (19-41); Mean Corp Hgb Conc 28.6 g/dL (32-36); Mean Corpuscular Hgb 21.1 pg (27.0-32.0); Mean Corpuscular Volume 73.7 fL (80-94); Mean Platelet Vol. 10.7 fl (6.2-12.0); Monocyte# 0.94 X10^3/uL; Monocyte% 11.8 % (0-10); NRBC Flagged by Analyzer 0 % (0-5); Neutrophil # 4.91 X10^3/uL (2.7-7.7); Neutrophil % 61.8 % (47-70); Platelet Count 409 K/mm3 (150-450); RBC Distribution Width CV 16.6 % (11.6-14.6); RBC Distribution Width SD 43.8 fl (35.1-43.9); Red Blood Count 4.98 M/mm3 (4.6-6.2)
[2023-12-05 16:23] LABS: Erythrocyte Sedimentation Rate 18 mm/hr (0-20)
[2023-12-05 17:02] LABS: Ferritin 7 ng/mL (26-388)
== END | disposition home or self-care (01) ==
PROVIDERS: PCP Internal Medicine; Referring Provider Internal Medicine Gastroenterology; Visit Provider Internal Medicine Gastroenterology
DX: K50.90 Crohn's disease, unspecified, without complications (principal); D50.9 Iron deficiency anemia, unspecified
CPT/HCPCS: 36415; 82728; 85025; 85652; 86140